=== PATIENT | male | born 1990 | race Caucasian/White ===

== ENCOUNTER 2016-10-02 00:35 | Emergency (ER) | payer MEDICAID, SELFPAY ==
[2016-10-02] MEDS ORDERED: AMOXicillin 250 MG CAP ONE (00:47)
[2016-10-02] MEDS ORDERED: Acetaminophen/Codeine 30-300mg Tablet ONE (00:48)
--- NOTE | 2016-10-02 01:08 | ERRECORD ---
[facility] EMERGENCY RECORD HPI TOOTHACHE (00:57 JLOY) CHIEF COMPLAINT: Patient presents for evaluation of toothache, Patient presents for evaluation of Pt with fractured tooth left lower molar today. Pain and swelling of the gum. No other symptoms. HISTORIAN: History provided by patient. LOCATION: Symptoms are localized. TEETH: lower left 3rd molar (#17),. QUALITY: Pain is dull in nature. TIME COURSE: Sudden onset of symptoms, There has been no change in the patient's symptoms over time. ASSOCIATED WITH: No associated chills, No associated facial pain, No associated facial swelling, No associated fever. EXACERBATED BY: Patient's condition exacerbated by chewing. RELIEVED BY: Patient's condition relieved by nothing. ROS (00:58 JLOY) CONSTITUTIONAL: Historian denies chills, denies fever. ENT: Historian denies dysphagia, denies sore throat. 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 (00:44 KASA) MALE SURGICAL HISTORY: RT KNEE SURGERY, colon resection 2nd to Crohns, Ostomy. (00:44 KASA) PSYCHIATRIC HISTORY: Notes: NONE, No previous psychiatric history. (00:44 KASA) SOCIAL HISTORY: Lives at home, with family, Patient drinks socially, twice a month, Patient denies drug use, Patient is a former tobacco user, smoked cigarettes, Patient quit smoking less than 10 years ago. (00:44 KASA) NOTES: Nursing records reviewed, Agree with nursing records. (00:59 JLOY) KNOWN ALLERGIES Benadryl (Unconfirmed): - ANXIETY diphenhydramine HCl: Reaction: Anxiety metoclopramide HCl (Unconfirmed) mushrooms (Unconfirmed): Reaction: Hives Reglan: - anxiety tape: Reaction: Rash CURRENT MEDICATIONS No recorded medications VITAL SIGNS (00:39 KASA) VITAL SIGNS: BP: 139/94, Pulse: 81, Resp: 20, Temp: 98.3 (Oral), Pain: 9 (Intermittent), O2 sat: 100 on Room Air, Time: 10/02/2016 &a-1R&a+25V*p+0X*d1140Y*c202B*c15G*c2P*p-0X&a-25V&a+1R Name: René Wharton : 1990 M26 MedRec: [id number] AcctNum: [id number] Prepared: Maile Oct 02, 2016 01:03 by Interface Page 1 of 3 pMD [facility] EMERGENCY RECORD 00:39. PHYSICAL EXAM (00:58 JLOY) CONSTITUTIONAL: Vital signs reviewed, Patient appears non toxic, Patient alert and oriented to person, place and time. EYES: Eye exam included findings of eyelids normal to inspection, Pupils equally round and reactive to light, Conjunctiva normal. ENT: Pharynx exam normal, Uvula exam normal, Tonsil exam normal, Mouth exam normal, mucous membranes moist, Teeth with, dental caries, fractures, Indicated tooth with severe decay and fractured pieces. TTP. Associated gum with mild swelling and tenderness. NECK: Neck exam included findings of normal range of motion, Trachea midline, no cervical adenopathy. RESPIRATORY CHEST: Respiratory exam included findings of no respiratory distress, Chest exam included findings of chest movement symmetrical. NEURO: Lynnette coma scale 15, Neuro exam findings include patient oriented to person, place and time, Speech normal. SKIN: Skin exam included findings of skin warm, dry, and normal in color, no rash. PSYCHIATRIC: Normal affect. MEDICATION ADMINISTRATION SUMMARY Drug Name: amoxicillin, Dose Ordered: 500 mg, Route: Oral, Status: Given, Time: 00:50 10/02/2016, Drug Name: acetaminophen-codeine, Dose Ordered: 1 tab(s), Route: Oral, Status: Given, Time: 00:50 10/02/2016, Detailed record available in Medication Service section. PROBLEM LIST No recorded problems DIAGNOSIS (00:47 JLOY) FINAL: PRIMARY: Toothache. PRESCRIPTION (00:47 JLOY) acetaminophen-codeine: TABLET : 300 mg-30 mg : ORAL : Quantity: 1-2 Unit: tab(s) Route: ORAL Schedule: every 6 hours PRN Dispense: 15 May substitute. Refills: No Refills . NOTES: No Refills. amoxicillin: CAPSULE (HARD, SOFT, ETC.) : 500 mg : ORAL : Quantity: 500 Unit: mg Route: ORAL Schedule: 3 times a day Dispense: 10 DAYS May substitute. Refills: No Refills . NOTES: ^s=No Refills No Refills. &a-1R&a+25V*p+0X*i9163M*c202B*c15G*c2P*p-0X&a-25V&a+1R Name: René Wharton Meet : 1990 M26 MedRec: [id number] AcctNum: [id number] Prepared: ThuOct 02, 2016 01:03 by Interface Page 2 of 3 pMD [facility] EMERGENCY RECORD DISPOSITION PATIENT: Disposition Type: Discharge, Disposition: *Discharge Home. (00:47 LEATHA) Patient left the department. (00:56 SOFY) Mas: LEATHA=MD Adriano, René GOETZ=NEIL Gaytan, Shanna &a-1R&a+25V*p+0X*x5738L*c202B*c15G*c2P*p-0X&a-25V&a+1R Name: Sharon Whartonlindsay Dsouza : 1990 M26 MedRec: [id number] AcctNum: [id number] Prepared: ThuOct 02, 2016 01:03 by Interface Page 3 of 3 pMD MTDD
--- NOTE | 2016-10-02 01:14 | PICIS ---
[facility] EMERGENCY RECORD TRIAGE (ThuOct 02, 2016 00:40 KASA) TRIAGE NOTES: Toothpain on back left bottom. (ThuOct 02, 2016 00:40 KASA) PATIENT: NAME: René Wharton, AGE: 26, GENDER: male, : Thu1990, TIME OF GREET: ThuOct 02, 2016 00:36, PREFERRED LANGUAGE: Peruvian, ETHNICITY: Not or , ECODE BILLING MAP: [facility], SSN: [id number], Zip Code: [address], KG WEIGHT: [phone], PHONE: , , , PERSON ID: [id number], PCP: Ian. (ThuOct 02, 2016 00:40 KASA) COMPLAINT: TOOTH PAIN. (ThuOct 02, 2016 00:40 KASA) ADMISSION: URGENCY: 5 Fast Track, ADMISSION SOURCE: Home, TRANSPORT: CAR, BED: ER -03. (ThuOct 02, 2016 00:40 KASA) PAIN: Patient complains of pain described as, aching, Location Dental, Pain is constant, Onset was 09/30/2016, Aggravating factors:, Aggravating factors include eating, No relieving factors. (00:44 KASA) SIRS SCORING: Heart Rate 55-109 (0), Temp range 96.8-101.1 (0), respiratory rate 12-24 (0), Mental Status altered: no (0). (00:44 KASA) TRIAGE SCREENING: Patient denies suicidal ideation, Patient denies presence of domestic violence. (00:44 KASA) PROVIDERS: TRIAGE NURSE: Shanna Gaytan RN. (ThuOct 02, 2016 00:40 KASA) VITAL SIGNS: BP 139/94, Pulse 81, Resp 20, Temp 98.3, (Oral), Pain 9, (Intermittent), O2 Sat 100, on Room Air, Time 10/02/2016 00:39. (00:39 KASA) PREVIOUS VISIT ALLERGIES: Benadryl, Reglan. (ThuOct 02, 2016 00:40 KASA) Benadryl, Reglan. (00:44 KASA) KNOWN ALLERGIES Benadryl (Unconfirmed): - ANXIETY diphenhydramine HCl: Reaction: Anxiety metoclopramide HCl (Unconfirmed) mushrooms (Unconfirmed): Reaction: Hives Reglan: - anxiety tape: Reaction: Rash CURRENT MEDICATIONS No recorded medications VITAL SIGNS (00:39 KASA) VITAL SIGNS: BP: 139/94, Pulse: 81, Resp: 20, Temp: 98.3 (Oral), Pain: 9 (Intermittent), O2 sat: 100 on Room Air, Time: 10/02/2016 00:39. NURSING ASSESSMENT: DENTAL (00:45 KASA) CONSTITUTIONAL: Patient arrives ambulatory, Gait steady, History &a-1R&a+25V*p+0X*b3175Q*c202B*c15G*c2P*p-0X&a-25V&a+1R Name: René Wharton : 1990 M26 MedRec: [id number] AcctNum: [id number] Prepared: Maile Oct 02, 2016 01:09 by Interface Page 1 of 7 pMD [facility] EMERGENCY RECORD obtained from patient, Patient appears, uncomfortable, Patient cooperative, Patient alert, Oriented to person, place and time, Skin warm, Skin dry, Skin normal in color, Mucous membranes pink, Mucous membranes moist, Patient complains of TOOTHACHE, Toothpain on back left bottom. DENTAL: Dental assessment findings include mouth with, poor dental hygiene, Teeth abnormal:. SAFETY: Side rails up, Cart/Stretcher in lowest position, Family at bedside, Call light within reach, Hospital ID band on. NURSING PROCEDURE: DISCHARGE NOTE (00:52 KASA) DISCHARGE: Patient discharged to home, ambulating without assistance, family driving, accompanied by parent, Summary of Care printed/ provided, Discharge instructions given to patient, Discharge instructions given to mother, Simple or moderate discharge teaching performed, . Educated and provided handout regarding diagnosis of: Toothache Follow up with PCP in 7-10 days., Prescriptions given and instructions on side effects given, Name of prescription(s) given: Amoxicillin, Tylenol #3. BELONGINGS: Belongings and valuables with patient upon arrival to the Emergency Department include:, Belongings and valuables with patient at time of discharge include:, Belongings remain with patient, Valuables remain with patient. SAFETY: Side rails up, Cart/Stretcher in lowest position, Family at bedside, Call light within reach, Hospital ID band on. NURSING PROCEDURE: TEACHING (00:51 KASA) TEACHING: Prescriptions given and instructions on side effects given, Name of prescription(s) given: TYLENOL #3 (ACETAMINOPHEN; CODEINE) is a pain reliever. It is used to treat mild to moderate pain or severe pain. SIDE EFFECTS THAT YOU SHOULD REPORT TO YOUR DOCTOR OR HEALTH PROJECT INTERN SOON POSSIBLE: allergic reactions like skin rash, itching or hives, swelling of the face, lips, or tongue; breathing difficulties, wheezing; confusion; light headedness or fainting spells; severe stomach pain; yellowing of the skin or the whites of the eyes. SIDE EFFECTS THAT USUALLY DO NOT REQUIRE MEDICAL ATTENTION (but should report if they continue or are bothersome): dizziness; drowsiness; nausea, vomiting., Notes: Additional information about the medication you were given and/or prescribed. Tell your doctor or health care management specialist if your pain does not go away, if it gets worse, or if you have new or a different type of pain. You may develop tolerance to the medication. Tolerance means that you will need a higher dose of the medication for pain relief. Tolerance is normal and is expected if you take the medicine for a long time. Do not suddenly stop taking your medicine because you may develop a severe reaction. Your body becomes used to the medicine. This does &a-1R&a+25V*p+0X*d6262H*c202B*c15G*c2P*p-0X&a-25V&a+1R Name: DioSharon newmanshua Meet : 1990 M26 MedRec: [id number] AcctNum: [id number] Prepared: [facility] Oct 02, 2016 01:09 by Interface Page 2 of 7 pMD [facility] EMERGENCY RECORD NOT mean you are addicted. Addiction is a behavior related to getting and using a drug for a non medical reason. If you have pain, you have a medical reason to take pain medicine. Your doctor will tell you how much medicine to take. If your doctor wants you to stop the medicine, the dose will be slowly lowered over time to avoid any side effects. YOU MAY GET DROWSY OR DIZZY. DO NOT DRIVE, USE MACHINERY, OR DO ANYTHING THAT NEEDS MENTAL ALERTNESS UNTIL YOU KNOW HOW THIS MEDICINE AFFECTS YOU. DO NOT STAND OR SIT UP QUICKLY, ESPECIALLY IF YOU ARE AN OLDER PATIENT. THIS REDUCES THE RISK OF DIZZY OR FAINTING SPELLS. ALCOHOL MAY INTERFERE WITH THE EFFECT OF THIS MEDICINE. AVOID ALCOHOLIC DRINKS. There are different types of narcotic medicines (opiates) for pain. IF YOU TAKE MORE THAN ONE TYPE AT THE SAME TIME, YOU MAY HAVE MORE SIDE EFFECTS. GIVE YOUR HEALTH CARE PROVIDER A LIST OF ALL MEDICINES YOU USE. YOUR DOCTOR WILL TELL YOU HOW MUCH MEDICINE TO TAKE. DO NOT TAKE MORE MEDICINE THAN DIRECTED. CALL EMERGENCY FOR HELP IF YOU HAVE PROBLEMS BREATHING. The medicine will cause constipation. Try to have a bowel movement at least every 2 to 3 days. If you do not have a bowel movement for 3 days, call your doctor or health care management specialist. DO NOT TAKE TYLENOL (ACETAMINOPHEN) OR MEDICINES THAT HAVE ACETAMINOPHEN WITH THIS MEDICINE. TOO MUCH ACETAMINOPHEN CAN BE VERY DANGEROUS. MANY NONPRESCRIPTION MEDICINES CONTAIN ACETAMINOPHEN. ALWAYS READ THE LABELS CAREFULLY TO AVOID TAKING MORE ACETAMINOPHEN. IMMEDIATELY CALL YOUR PHYSICIAN OR GET EMERGENCY HELP IF YOU ARE BREAST-FEEDING AND YOUR BABY IS SLEEPIER THAN USUAL, IS LIMP, OR HAS DIFFICULTY OR BREATHING. Let your health care provider know if you have any of these conditions before taking this medication: brain tumor Crohn's disease, inflammatory bowel disease, or ulcerative colitis drug abuse or addiction head injury heart or circulation problems if you often drink alcohol kidney disease or problems going to the bathroom liver disease lung disease, asthma, or breathing problems an unusual or allergic reaction to acetaminophen, codeine, salicylates, other opioid analgesics, other medicines, foods, dyes, or preservatives or trying to get breast-feeding How to take? Take this medicine by mouth with a full glass of water. Follow the directions on the prescription label. If the medicine upsets your stomach, take the medicine with food or milk. Do not take more medicine than you are told to take. If you miss a dose, take it as soon as you can. If it is almost time for your next dose, take only that dose. Do not take double or extra &a-1R&a+25V*p+0X*o8056Q*c202B*c15G*c2P*p-0X&a-25V&a+1R Name: René Wharton : 1990 M26 MedRec: [id number] AcctNum: [id number] Prepared: Maile Oct 02, 2016 01:09 by Interface Page 3 of 7 pMD [facility] EMERGENCY RECORD doses. Where keep medication? Keep out of the reach of children. This medicine can be abused. Keep your medicine in a safe place to protect it from theft. Do not share this medicine with anyone. Selling or giving away this medicine is dangerous and against the law. Store at room temperature between 15 and 30 degrees C (59 and 86 degrees F). Protect from light. Keep container tightly closed. Throw away any unused medicine after the expiration date. Discard unused medicine and used packaging carefully. Pets and children can be harmed if they find used or lost packages. What may interact with this medicine? alcohol antihistamines benztropine drugs for bladder problems like solifenacin, trospium, oxybutynin, tolterodine, hycosamine, and methscopolamine drugs for breathing problems like ipratropium and tiotropium drugs for certain stomach or intestine problems like propantheline, homatropine methylbromide, glycopyrrolate, atropine, belladonna, and dicyclomine medicines for depression, anxiety, or psychotic disturbances medicines for sleep muscle relaxants naltrexone narcotic medicines (opiates) for pain phenothiazines like perphenazine, thioridazine, chlorpromazine, mesoridazine, fluphenazine, prochlorperazine, promazine, trifluoperazine scopolamine tramadol trihexyphenidyl This list may not describe all possible interactions. Give your health care provider a list of all the medicines, herbs, non-prescription drugs, or dietary supplements you use. Also tell them if you smoke, drink alcohol, or use illegal drugs. Some items may interact with your medicine. PATIENT &/OR CAREGIVER VERBALIZED UNDERSTANDING OF THE TEACHING PROVIDED AND WAS ABLE TO DEMONSTRATE TEACHING EVIDENCED BY TEACH BACK. MEDICATION ADMINISTRATION SUMMARY Drug Name: amoxicillin, Dose Ordered: 500 mg, Route: Oral, Status: Given, Time: 00:50 10/02/2016, Drug Name: acetaminophen-codeine, Dose Ordered: 1 tab(s), Route: Oral, Status: Given, Time: 00:50 10/02/2016, Detailed record available in Medication Service section. &a-1R&a+25V*p+0X*s9906Y*c202B*c15G*c2P*p-0X&a-25V&a+1R Name: René Wharton : 1990 M26 MedRec: [id number] AcctNum: [id number] Prepared: ThuOct 02, 2016 01:09 by Interface Page 4 of 7 pMD [facility] EMERGENCY RECORD MEDICATION SERVICE (00:50 [facility]) acetaminophen-codeine: Order: acetaminophen-codeine (acetaminophen/codeine phosphate) - Dose: 1 tab(s) : Oral Ordered by: René Oh MD Entered by: René Oh MD [facility] Oct 02, 2016 00:46 , Acknowledged by: Shanna Gaytan RN Maile Oct 02, 2016 00:48 Documented as given by: Shanna Gaytan RN [facility] Oct 02, 2016 00:50 Patient, Medication, Dose, Route and Time verified prior to administration. Amount given: 1 tab, Site: Medication administered P.O., Correct patient, time, route, dose and medication confirmed prior to administration, Patient advised of actions and side-effects prior to administration, Allergies confirmed and medications reviewed prior to administration, Patient in position of comfort, Side rails up, Cart in lowest position, Family at bedside. amoxicillin: Order: amoxicillin (amoxicillin trihydrate) - Dose: 500 mg : Oral Ordered by: René Oh MD Entered by: René Oh MD [facility] Oct 02, 2016 00:46 , Acknowledged by: Shanna Gaytan RN Maile Oct 02, 2016 00:48 Documented as given by: Shanna Gaytan RN [facility] Oct 02, 2016 00:50 Patient, Medication, Dose, Route and Time verified prior to administration. Amount given: 500 mg, Site: Medication administered P.O., Correct patient, time, route, dose and medication confirmed prior to administration, Patient advised of actions and side-effects prior to administration, Allergies confirmed and medications reviewed prior to administration, Patient in position of comfort, Side rails up, Cart in lowest position, Family at bedside. HPI TOOTHACHE (00:57 JLOY) CHIEF COMPLAINT: Patient presents for evaluation of toothache, Patient presents for evaluation of Pt with fractured tooth left lower molar today. Pain and swelling of the gum. No other symptoms. HISTORIAN: History provided by patient. LOCATION: Symptoms are localized. TEETH: lower left 3rd molar (#17),. QUALITY: Pain is dull in nature. TIME COURSE: Sudden onset of symptoms, There has been no change in the patient's symptoms over time. ASSOCIATED WITH: No associated chills, No associated facial pain, No associated facial swelling, No associated fever. EXACERBATED BY: Patient's condition exacerbated by chewing. RELIEVED BY: Patient's condition relieved by nothing. ROS (00:58 JLOY) CONSTITUTIONAL: Historian denies chills, denies fever. ENT: Historian denies dysphagia, denies sore throat. 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 (00:44 KASA) MALE SURGICAL HISTORY: RT KNEE SURGERY, colon resection 2nd to Crohns, Ostomy. (00:44 KASA) PSYCHIATRIC HISTORY: Notes: NONE, No previous psychiatric history. (00:44 KASA) SOCIAL HISTORY: Lives at home, with family, Patient drinks socially, twice a month, Patient denies drug use, Patient is a former tobacco user, smoked cigarettes, Patient quit smoking less than 10 years ago. (00:44 KASA) NOTES: Nursing records reviewed, Agree with nursing records. (00:59 JLOY) PHYSICAL EXAM (00:58 JLOY) CONSTITUTIONAL: Vital signs reviewed, Patient appears non toxic, Patient alert and oriented to person, place and time. EYES: Eye exam included findings of eyelids normal to inspection, Pupils equally round and reactive to light, Conjunctiva normal. ENT: Pharynx exam normal, Uvula exam normal, Tonsil exam normal, Mouth exam normal, mucous membranes moist, Teeth with, dental caries, fractures, Indicated tooth with severe decay and fractured pieces. TTP. Associated gum with mild swelling and tenderness. NECK: Neck exam included findings of normal range of motion, Trachea midline, no cervical adenopathy. RESPIRATORY CHEST: Respiratory exam included findings of no respiratory distress, Chest exam included findings of chest movement symmetrical. NEURO: Vaughn coma scale 15, Neuro exam findings include patient oriented to person, place and time, Speech normal. SKIN: Skin exam included findings of skin warm, dry, and normal in color, no rash. PSYCHIATRIC: Normal affect. EVENTS TRANSFER: Triage to Emergency Emergency Room -03. (ThuOct 02, 2016 00:40 KASA) Removed from Emergency Emergency Room -03. (00:56 KASA) PROBLEM LIST No recorded problems DIAGNOSIS (00:47 JLOY) FINAL: PRIMARY: Toothache. DISPOSITION PATIENT: Disposition Type: Discharge, Disposition: *Discharge &a-1R&a+25V*p+0X*d7146L*c202B*c15G*c2P*p-0X&a-25V&a+1R Name: René Wharton : 1990 M26 MedRec: [id number] AcctNum: [id number] Prepared: ThuOct 02, 2016 01:09 by Interface Page 6 of 7 D [facility] EMERGENCY RECORD Home. (00:47 JLOY) Patient left the department. (00:56 KASA) INSTRUCTION (00:47 JLOY) DISCHARGE: TOOTH PAIN. FOLLOWUP: Follow up with Specialist in 7-10 days. SPECIAL: Follow up with your dentist. PRESCRIPTION (00:47 JLOY) acetaminophen-codeine: TABLET : 300 mg-30 mg : ORAL : Quantity: 1-2 Unit: tab(s) Route: ORAL Schedule: every 6 hours PRN Dispense: 15 May substitute. Refills: No Refills . NOTES: No Refills. amoxicillin: CAPSULE (HARD, SOFT, ETC.) : 500 mg : ORAL : Quantity: 500 Unit: mg Route: ORAL Schedule: 3 times a day Dispense: 10 DAYS May substitute. Refills: No Refills . NOTES: ^s=No Refills No Refills. IMAGING (00:57 SOFY) *DISCHARGE INSTRUCTIONS RECEIPT: Image captured from scanner. *SUPPLY CHARGE SHEET: Image captured from scanner. ADMIN (00:59 LEATHA) DIGITAL SIGNATURE: MD Oh Joshua. Mas: LEATHA=MD Oh Joshua KASA=NEIL Gaytan, [facility] &a-1R&a+25V*p+0X*h6615G*c202B*c15G*c2P*p-0X&a-25V&a+1R Name: René Wharton : 1990 M26 MedRec: [id number] AcctNum: [id number] Prepared: Maile Oct 02, 2016 01:09 by Interface Page 7 of 7 pMD MTDD
== END 2016-10-02 00:52 | disposition home or self-care (01) ==
LOC: NAV ERS 00:35
DX: S02.5XXA Fracture of tooth (traumatic), initial encounter for closed fracture (principal); K02.9 Dental caries, unspecified; K50.90 Crohn's disease, unspecified, without complications; D64.9 Anemia, unspecified; Z87.891 Personal history of nicotine dependence
CPT/HCPCS: 99282

== ENCOUNTER 2017-03-19 18:24 | Emergency (ER) | payer SELFPAY ==
[2017-03-19] MEDS ORDERED: Lidocaine 4% Cream 5 GM TUBE w/ Tegaderm ONE (19:07)
[2017-03-19] MEDS ORDERED: Sodium Chloride 0.9% 100 ML ONE (19:08)
[2017-03-19] MEDS ORDERED: Sodium Chloride 0.9% 0 ML ONE (19:08)
[2017-03-19] MEDS ORDERED: Prochlorperazine 10 MG/2 ML VIAL ONE (19:08)
[2017-03-19] MEDS ORDERED: Sulfameth/Trimethoprim DS 800-160mg TAB ONE (19:17)
[2017-03-19] MEDS ORDERED: Sodium Chloride 0.9% 1,000 ML ONE (19:40)
[2017-03-19] MEDS ORDERED: methylPREDNISolone Sod Succ/PF 125 MG/2 ML VIAL ONE (19:56)
[2017-03-19] MEDS ORDERED: Magnesium Sulfate 2 GM/NS 0.9% 50 ML BAG ONE (19:56)
== END 2017-03-19 20:05 | disposition home or self-care (01) ==
LOC: NAV ERS 18:24
DX: G43.909 Migraine, unspecified, not intractable, without status migrainosus (principal); K50.90 Crohn's disease, unspecified, without complications; Z87.891 Personal history of nicotine dependence
CPT/HCPCS: 96365; J0780; J2930; J3475; J7050

== ENCOUNTER 2021-01-01 11:14 | Emergency (ER) | payer BC | END 2021-01-01 12:46 | disposition home or self-care (01) | LOC: NAV ERS 11:14 | DX: S67.193A Crushing injury of left middle finger, initial encounter (principal); F17.210 Nicotine dependence, cigarettes, uncomplicated; W23.0XXA Caught, crushed, jammed, or pinched between moving objects, initial encounter ==

== ENCOUNTER 2021-02-17 22:24 | Emergency (ER) | payer BC | END 2021-02-17 23:06 | disposition home or self-care (01) | LOC: NAV ERS 22:24 | DX: S50.11XA Contusion of right forearm, initial encounter (principal); D64.9 Anemia, unspecified; Z87.891 Personal history of nicotine dependence; W22.8XXA Striking against or struck by other objects, initial encounter ==

== ENCOUNTER 2022-08-18 00:28 | Emergency (ER) | payer BC, SELFPAY ==
[2022-08-18] MEDS ORDERED: methylPREDNISolone Sod Succ/PF 125 MG/2 ML VIAL ONE (01:15)
[2022-08-18] MEDS ORDERED: Sodium Chloride 0.9% 1,000 ML ONE (01:15)
[2022-08-18] MEDS ORDERED: Ondansetron PF 4 MG/2 ML Vial ONE (01:15)
[2022-08-18 01:44] LABS: #Basophils 0.1 thou/uL (0.0-0.2); #Eosinphils 0.1 thou/uL (0.0-0.7); #Lymphocytes 0.6 thou/uL (1.20-3.40); #Monocytes 0.8 thou/uL (0.11-0.59); #Neutrophils 15.8 thou/uL (1.40-6.50); %Basophils 0.4 % (0.0-1.0); %Eosinophils 0.3 % (0.0-10.0); %Lymphocytes 3.5 % (21.0-51.0); %Monocytes 4.7 % (0.0-10.0); %Neutrophils 91.1 % (42.0-75.0); Bilirubin Small (Negative); Blood, Urine Negative (Negative); Clarity Clear (Clear); Glucose, Urine (Dipstick) Negative (Negative); Ketone, Urine Negative (Negative); Leukocyte Negative (Negative); Mean Corpuscular HGB CONC 32.7 g/dL (32.0-36.0); Mean Corpuscular Hemoglobin 29.1 pg (27.0-31.0); Mean Platelet Volume 8.9 fL (7.4-10.4); Nitrite Negative (Negative); Platelet Count 405 10x3/uL (130-400); Protein, Urine (Dipstick) Trace mg/dL (Neg-Trace); RBC Distribution Width 13.6 % (11.5-14.5); Red Blood Cell (RBC) Count 5.83 mill/uL (4.70-6.10); Urobilinogen 0.2 mg/dL (Less than 2); White Blood Cell (WBC) Count 17.4 10x3/uL (4.8-10.8); pH, Urine 5.5 (5.0-9.0)
[2022-08-18 01:49] LABS: Specific Gravity, Urine 1.035 (1.002-1.036)
[2022-08-18] MEDS ORDERED: Morphine 4 MG/ML VIAL ONE ×3 (01:57→08:42)
[2022-08-18 02:01] LABS: ALT (SGPT) 113 U/L (8-55); AST (SGOT) 110 U/L (5-34); Albumin 4.7 g/dL (3.5-5.0); Alkaline Phosphatase 84 U/L (40-110); Anion Gap 18 mmol/L (10-20); BUN (Urea Nitrogen) 10 mg/dL (8.9-20.6); Bilirubin, Total 0.8 mg/dL (0.2-1.2); Calc. Creatinine Clearance 0 mL/min (70-130); Calcium 9.2 mg/dL (7.8-10.44); Carbon Dioxide 21 mmol/L (22-29); Chloride 103 mmol/L (98-107); Estimated GFR 94; Globulin 4.4 g/dL (2.4-3.5); Glucose 110 mg/dL (70-105); Potassium 5.6 mmol/L (3.5-5.1); Protein, Total 9.1 g/dL (6.0-8.3)
[2022-08-18 02:04] LABS: Sodium 136 mmol/L (136-145)
[2022-08-18] MEDS ORDERED: Lidocaine 2% Jelly 5 ML TUBE ONE (03:03)
[2022-08-18] MEDS ORDERED: Benzocaine 20% Spray 60 ML CAN ONE (03:18)
[2022-08-18 03:52] LABS: SARS-CoV-2 NAA Rapid Test Not Detected (NotDetected)
[2022-08-18] MEDS ORDERED: Iopamidol 370 76% 100 ML VIAL ONE (09:00)
== END 2022-08-18 09:17 | disposition short-term general hospital (02) ==
LOC: NAV ERS 00:28
DX: K50.919 Crohn's disease, unspecified, with unspecified complications (principal); K56.609 Unspecified intestinal obstruction, unspecified as to partial versus complete obstruction; D72.829 Elevated white blood cell count, unspecified; Z20.822 Contact with and (suspected) exposure to COVID-19; Z87.891 Personal history of nicotine dependence
CPT/HCPCS: 74018; 74177; 80053; 81003; 85025; 96361; 96374; 96375; 96376; J2270; J2405; J2930; J7050; Q9967; U0002

== ENCOUNTER 2025-07-27 15:56 | Emergency (ER) | payer SELFPAY ==
[2025-07-27] MEDS ORDERED: Amoxicillin/Potassium Clav 875 MG TAB ONE (16:32)
== END 2025-07-27 16:35 | disposition home or self-care (01) ==
LOC: NAV ERS 15:56
DX: L03.113 Cellulitis of right upper limb (principal); Z87.891 Personal history of nicotine dependence
CPT/HCPCS: 99283